=== PATIENT | male | born 1960 | race Caucasian/White ===

== ENCOUNTER 2022-08-09 11:25 | Emergency (ER) | payer OTHER ==
[~2022-08-09] VITALS: Ht 170.2 cm; Wt 100.0 kg
[2022-08-09 11:34] VITALS: BP 185/101
[2022-08-09] MEDS ORDERED: TETRACAINE 0.5% OPHTH DROPS 4ML RIGHTEYE ONE (16:45)
[2022-08-09] MEDS ORDERED: FLUORESCEIN SODIUM 1MG/STRIP RIGHTEYE ONE (16:45)
== END 2022-08-09 17:37 | disposition home or self-care (01) ==
LOC: ER 12:17
DX: T15.91XA Foreign body on external eye, part unspecified, right eye, initial encounter (principal); X58.XXXA Exposure to other specified factors, initial encounter; Z90.49 Acquired absence of other specified parts of digestive tract
CPT/HCPCS: 99283